=== PATIENT | female | born 1965 | race Asian ===

== ENCOUNTER → 2021-02-10 11:21 | Outpatient (REF) | payer OTHER, SELFPAY ==
--- NOTE | 2021-02-10 11:26 | ECG_ITS ---
Test Reason : Z01.818 Blood Pressure : / mmHG Vent. Rate : 074 BPM Atrial Rate : 074 BPM P-R Int : 114 ms QRS Dur : 078 ms QT Int : 408 ms P-R-T Axes : 057 034 048 degrees QTc Int : 452 ms Normal sinus rhythm Nonspecific T wave abnormality Abnormal ECG No previous ECGs available Referred By: Jessica Lyons Electronically Signed By:Jose Tejada
[2021-02-10 11:33] LABS: MANUAL DIFF FLAG NO
[2021-02-10 13:01] LABS: Basophils Percent Auto 0.3 % (0-2); Eosinophils Absolute Auto 0.1 X10*3/uL (0.0-0.4); Eosinophils Percent Auto 1.2 % (0-4); Hematocrit 41.2 % (37.0-47.0); Hemoglobin 13.4 g/dl (12.0-16.0); Imm Gran Abs Auto 0.02 X10*3/uL (0.00-0.03); Imm Gran Pct Auto 0.3 % (0.0-0.4); Lymphocytes Absolute Auto 2.6 X10*3/uL (1.2-4.9); Lymphocytes Percent Auto 45.2 % (20-40); Mean Corpuscular HGB Conc 32.5 g/dl (31.0-35.0); Mean Corpuscular Hemoglobin 29.3 pg (27.0-33.0); Mean Corpuscular Volume 90.2 fL (80.0-98.0); Mean Platelet Volume 9.1 fL (9.4-12.3); Monocytes Absolute Auto 0.5 X10*3/uL (0.1-1.2); Monocytes Percent Auto 9.4 % (2-11); Neutrophils Absolute Auto 2.5 x10*3/uL (2.0-8.3); Neutrophils Percent Auto 43.6 % (45-73); Platelet Count 409 X10*3/uL (160-400); Red Blood Count 4.57 X10*6/uL (4.20-5.50); White Blood Count 5.8 X10*3/uL (4.8-10.8)
[2021-02-10 13:08] LABS: Prothrombin Time 11.3 SEC (9.9-13.0)
[2021-02-10 13:11] LABS: Partial Thromboplastin Time 37.4 SEC (24.1-38.0)
[2021-02-10 13:21] LABS: Alanine Aminotransferase 14 U/L (0-31); Albumin Level 4.8 g/dL (3.5-5.0); Alkaline Phosphatase 78 U/L (39-117); Anion Gap 15 (12-20); Aspartate Amino Transferase 19 U/L (5-31); Bilirubin Total 0.7 mg/dL (0.0-1.0); Blood Urea Nitrogen 13 mg/dL (9-16); Calcium 10.2 mg/dL (8.4-10.2); Carbon Dioxide 28 mmol/L (22-29); Chloride 104 mmol/L (96-108); Estimated Glomerular Filt Rate > 60; Glucose Fasting 113 mg/dL (60-99); Potassium 5.1 mmol/L (3.3-5.1); Sodium 142 mmol/L (135-145)
== END ==
LOC: HO.CARD 11:21
PROVIDERS: PCP Internal Medicine; Visit Provider Nurse Practitioner Family
DX: Z01.818 Encounter for other preprocedural examination (principal); I10 Essential (primary) hypertension; E78.00 Pure hypercholesterolemia, unspecified
CPT/HCPCS: 36415; 80053; 85025; 85610; 85730; 93005

== ENCOUNTER 2021-02-28 15:56 | Outpatient (REF) | payer OTHER, SELFPAY ==
--- NOTE | ~2021-02-28 | MM_ITS ---
EXAMINATION: MM SCREENING DIGITAL BREAST TOMOSYNTHESIS, BILATERAL CLINICAL INFORMATION: Screening. Asymptomatic. The lifetime risk of breast cancer based on the Tyrer-Cuzick Model is 13%. COMPARISON: Mammography: 01/15/2019, 10/28/2017, 04/07/2016 TECHNIQUE: Digital breast tomosynthesis is performed in both the craniocaudal and mediolateral oblique views along with computer-aided detection (CAD). Synthesized 2D images are generated from the tomosynthesis. Additional right MLO view is provided. FINDINGS: There are scattered areas of fibroglandular density (ACR BI-RADS breast composition Category b). There are no significant masses, abnormal calcifications, or other abnormalities. No architectural abnormality. The axilla are unremarkable. MM/MM tomosynthesis screening BI IMPRESSION: No mammographic evidence of malignancy. ASSESSMENT: BI-RADS 1: Negative RECOMMENDATION: Routine annual mammography screening. This patient's information was entered into a reminder system with a target due date for their next mammogram.
== END 2021-02-28 15:57 | disposition home or self-care (01) ==
LOC: HO.MAMMO 15:56
PROVIDERS: PCP Internal Medicine; Visit Provider Internal Medicine
DX: Z12.31 Encounter for screening mammogram for malignant neoplasm of breast (principal)
CPT/HCPCS: 77063; 77067

== ENCOUNTER 2022-02-22 08:11 | Outpatient (REF) | payer OTHER, SELFPAY ==
--- NOTE | ~2022-02-22 | MM_ITS ---
EXAMINATION: BONE DENSITOMETRY CLINICAL INDICATION: Menopause. COMPARISON: This is the patient's baseline examination. TECHNIQUE: Using a [employer] DXA System (software version: 13.1) manufactured by [employer], dual-energy x-ray absorptiometry was performed of the lumbar spine and left hip. The images are of good technical quality. Summary results are attached. FINDINGS: AP SPINE L1-L4: BMD 0.984 g/cm2, Z-score -0.5, T-score -1.6, osteopenia. LEFT FEMUR, NECK: BMD 0.877 g/cm2, Z-score 0.1, T-score -1.2, osteopenia. LEFT FEMUR, TOTAL: BMD 0.861 g/cm2, Z-score -0.3, T-score -1.2, osteopenia. IDENTIFIED RISK FACTORS: Menopause, rheumatoid arthritis, glucocorticoids (chronic). HISTORY OF FRACTURE: None listed. MEDICATIONS: Multivitamin, vitamin D. MM/XR DEXA axial skeleton IMPRESSION: 1. DIAGNOSIS: Osteopenia based on the lowest T-score value of -1.6 in the lumbar spine applying World Health Organization criteria. 2. 10-YEAR FRACTURE RISK PREDICTION, FRAX: Major osteoporotic fracture (clinical spine, forearm, hip or shoulder) 7.3%. Hip fracture 0.6%. 3. Treatment Recommendations: NOF guidelines recommend consideration for treatment in postmenopausal women and men age 50 and older presenting with the following: -A hip or vertebral (clinical or morphometric) fracture. -T-score less than or equal to -2.5 at the femoral neck or spine after appropriate evaluation to exclude secondary causes. -Low bone mass at the hip or spine and a 10-year fracture probability by FRAX of greater than or equal to 3% for hip fracture or greater than or equal to 20% for major osteoporotic fracture based on the [place] adapted WHO algorithm. 4. Other Recommendations: All treatment decisions require clinical judgment and consideration of individual patient factors, including patient preferences, comorbidities, previous drug use, risk factors not captured in the FRAX model (e.g. frailty, falls, vitamin D deficiency, increased bone turnover, interval significant decline in bone density) and possible under or overestimation of fracture risk by FRAX. Additional medical evaluation for secondary cause of low bone mineral density may be appropriate. FUTURE SCAN RECOMMENDATION: People with diagnosed cases of osteoporosis or at high risk for fracture should have regular bone mineral density tests. For patients eligible for Medicare, routine testing is allowed once every 2 years. The testing frequency can be increased to one year for patients who have rapidly progressing disease, those who are receiving or discontinuing medical therapy to restore bone mass, or have additional risk factors.
== END 2022-02-22 08:12 | disposition home or self-care (01) ==
LOC: HO.MAMMO 08:11
PROVIDERS: Visit Provider Internal Medicine
DX: Z13.820 Encounter for screening for osteoporosis (principal); Z78.0 Asymptomatic menopausal state
CPT/HCPCS: 77080

== ENCOUNTER 2022-03-13 11:45 | Outpatient (REF) | payer OTHER, SELFPAY ==
--- NOTE | ~2022-03-13 | MM_ITS ---
EXAMINATION: MM SCREENING DIGITAL BREAST TOMOSYNTHESIS, BILATERAL CLINICAL INFORMATION: Screening. Asymptomatic. Family history breast cancer, sister. The lifetime risk of breast cancer based on the Tyrer-Cuzick Model is 6%. COMPARISON: Mammography: 02/28/2021, 01/15/2019, 10/28/2017 TECHNIQUE: Digital breast tomosynthesis is performed in both the craniocaudal and mediolateral oblique views along with computer-aided detection (CAD). Synthesized 2D images are generated from the tomosynthesis. FINDINGS: There are scattered areas of fibroglandular density (ACR BI-RADS breast composition Category b). There are no significant masses, abnormal calcifications, or other abnormalities. Parenchymal pattern is similar to prior studies. There is no developing density or architectural abnormality. The axilla and skin contours are unremarkable. No significant changes. MM/MM tomosynthesis screening BI IMPRESSION: No mammographic evidence of malignancy. ASSESSMENT: BI-RADS 1: Negative RECOMMENDATION: Routine annual mammography screening. This patient's information was entered into a reminder system with a target due date for their next mammogram.
== END 2022-03-13 11:46 | disposition home or self-care (01) ==
LOC: HO.MAMMO 11:45
PROVIDERS: PCP Internal Medicine; Visit Provider Internal Medicine
DX: Z12.31 Encounter for screening mammogram for malignant neoplasm of breast (principal)
CPT/HCPCS: 77063; 77067

== ENCOUNTER 2022-06-12 10:34 | Outpatient (REF) | payer OTHER, SELFPAY ==
[2022-06-12 10:59] LABS: MANUAL DIFF FLAG NO
[2022-06-12 11:21] LABS: Basophils Percent Auto 0.5 % (0-2); Eosinophils Absolute Auto 0.1 X10*3/uL (0.0-0.4); Eosinophils Percent Auto 1.1 % (0-4); Hematocrit 41.5 % (37.0-47.0); Hemoglobin 13.5 g/dl (12.0-16.0); Imm Gran Abs Auto 0.01 X10*3/uL (0.00-0.03); Imm Gran Pct Auto 0.2 % (0.0-0.4); Lymphocytes Absolute Auto 2.8 X10*3/uL (1.2-4.9); Lymphocytes Percent Auto 50.6 % (20-40); Mean Corpuscular HGB Conc 32.5 g/dl (31.0-35.0); Mean Corpuscular Hemoglobin 29.2 pg (27.0-33.0); Mean Corpuscular Volume 89.8 fL (80.0-98.0); Monocytes Absolute Auto 0.6 X10*3/uL (0.1-1.2); Monocytes Percent Auto 10.7 % (2-11); Neutrophils Absolute Auto 2.1 x10*3/uL (2.0-8.3); Neutrophils Percent Auto 36.9 % (45-73); Platelet Count 374 X10*3/uL (160-400); Red Blood Count 4.62 X10*6/uL (4.20-5.50); Red Cell Distribution Width 12.2 % (11.0-16.0); White Blood Count 5.6 X10*3/uL (4.8-10.8)
[2022-06-12 12:14] LABS: Cholesterol 251 mg/dL; HDL Cholesterol 51 mg/dL; LDL Cholesterol Calculated 134 mg/dl; Triglycerides 333 mg/dL
[2022-06-12 12:47] LABS: Folate 12.7 ng/mL (> or = 4.0); Vitamin B12 793 pg/mL (200-900); Vitamin D 25-OH Total 15.8 ng/mL (>30)
[2022-06-17 18:29] LABS: Intrinsic Factor Antibodies Negative (Negative)
[2022-06-19 15:23] LABS: Parietal Cell Antibody 54.6 Unit (<=20.0)
== END 2022-06-12 10:35 | disposition home or self-care (01) ==
LOC: HO.LAB 10:34
PROVIDERS: PCP Internal Medicine; Visit Provider Internal Medicine
DX: E53.8 Deficiency of other specified B group vitamins (principal); D64.9 Anemia, unspecified; E78.5 Hyperlipidemia, unspecified; E55.9 Vitamin D deficiency, unspecified
CPT/HCPCS: 36415; 80061; 82306; 82607; 82746; 83516; 85025; 86340

== ENCOUNTER 2023-04-17 11:58 | Outpatient (REF) | payer OTHER, SELFPAY ==
[2023-04-17 13:35] LABS: Alanine Aminotransferase 12 U/L (0-31); Albumin Level 4.5 g/dL (3.5-5.0); Alkaline Phosphatase 72 U/L (39-117); Anion Gap 12 (12-20); Aspartate Amino Transferase 19 U/L (5-31); Bilirubin Total 0.4 mg/dL (0.0-1.0); Blood Urea Nitrogen 13 mg/dL (9-16); Calcium 9.5 mg/dL (8.4-10.2); Carbon Dioxide 30 mmol/L (22-29); Chloride 104 mmol/L (96-108); Cholesterol 244 mg/dL (<200); Estimated Glomerular Filt Rate > 60; Glucose Fasting 117 mg/dL (60-99); HDL Cholesterol 53 mg/dL (>40); LDL Cholesterol Calculated 126 mg/dL (<100); Potassium 3.9 mmol/L (3.3-5.1); Sodium 142 mmol/L (135-145); Triglycerides 328 mg/dL (<150)
[2023-04-17 13:50] LABS: Vitamin D 25-OH Total 24.9 ng/mL (>30)
== END 2023-04-17 11:59 | disposition home or self-care (01) ==
LOC: HO.LAB 11:58
PROVIDERS: Visit Provider Internal Medicine
DX: E78.5 Hyperlipidemia, unspecified (principal); E55.9 Vitamin D deficiency, unspecified; M85.80 Other specified disorders of bone density and structure, unspecified site
CPT/HCPCS: 36415; 80053; 80061; 82306

== ENCOUNTER 2023-04-25 13:48 | Outpatient (AMB) | payer OTHER, SELFPAY ==
[2023-04-25 13:50] VITALS: BP 114/70; BMI 23.7
--- NOTE | 2023-04-25 13:50 | MHC.PC.OV ---
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 Accompanied by: Self / Same As Patient Allergies ibuprofen Allergy (Mild, Verified 04/25/23 14:06) Abdominal Pain aspirin [ASPIRIN] Allergy (Unknown, Verified 04/25/23 14:06) STOMACH UPSET, gi upset meloxicam Adverse Reaction (Intermediate, Verified 04/25/23 14:06) upset stomach Aspir Allergy (Unknown, Uncoded 04/25/23 14:06) stomach upset Medication List - Last Reconciled 04/25/23 by Leidy Crook MD adalimumab (Humira Pen) 40 mg subcut QWEEK calcium carbonate-vitamin D3 500 mg-10 mcg (400 unit) (Oyster Shell Calcium-Vitamin D3) 1 tab PO DAILY 90 days cholecalciferol (vitamin D3) 50 mcg PO DAILY 90 days mecobalamin (vitamin B12) 1,000 mcg PO DAILY nabumetone 500 mg PO BID Tobacco use date assessed: 04/25/23 Dental Screening Dental Screen Date: 04/25/23 Did you have a dental visit in the last 12 months?: Yes Did you have a dental problem in the last 6 months where you did not have access to dental care?: No Was dental information given to patient?: Patient has dentist HPI HPI Comments History of Present Illness Details This is a 57-year-old female with rheumatoid arthritis that comes for her physical exam. Last mammogram was 2021 and I will order another mammogram. Last bone density was February 2022. Last colonoscopy was 2017 and next colonoscopy should be 2027. She declined Pap smear and last one was done about 5 years ago. Rheumatoid arthritis is follow by Rheumatology. She has impaired glucose tolerance but denies any polyuria, polydipsia or unintentional weight loss. Rheumatoid arthritis is follow by arthritis treatment center and has been stable with Humira. Has mixed hyperlipidemia and statins and fibrates will be started. [facility] Medical History Impaired glucose tolerance Surgical History History of section Family History Mother Diabetes mellitus Father No problems noted. Social History Housing: House Alcohol intake: never Patient Tobacco Use Status: Never used Tobacco e-Cigarette/Vaping Use: Never Used Second Hand Smoke Exposure: No service: No Current occupational status: unemployed Cognitive needs: No Hearing needs: No Vision needs: No Questionnaire PHQ-9 Over the last 2 weeks, how often have you been bothered by any of the following problems? 1. Little interest or pleasure in doing things: not at all 2. Feeling down, depressed, or hopeless: not at all 3. Trouble falling or staying asleep, or sleeping too much: not at all 4. Feeling tired or having little energy: not at all 5. Poor appetite or overeating: not at all 6. Feeling bad about yourself - or that you are a failure or have let yourself or your family down: not at all 7. Trouble concentrating on things, such as reading the newspaper or watching television: not at all 8. Moving or speaking so slowly that other people could have noticed. Or the opposite - being so fidgety or restless that you have been moving around a lot more than usual: not at all 9. Thoughts that you would be better off or of hurting yourself in some way: not at all Total score: 0 Depression Screening Interpretation: Negative Depression Screening Done: Yes 01771 - PHQ-9 Billing: Yes Source: Developed by Drs. Aj Knox, Iliana Ruiz, Javid Walton and colleagues, with an educational humphrey from [employer]. Thrive Questionnaire Date Thrive assessed: 04/25/23 I am a: Patient What is your living situation today?: I have a steady place to live Within the past 12 months, did the food you bought not last and you didn't have the money to get more?: Never true Within the past 12 months, did you worry whether your food would run out before you got money to buy more?: Never true Do you have trouble paying for medicines?: No Do you have trouble getting transportation to medical appointments?: No Do you have trouble paying your heating and electricity bill?: No Do you have trouble taking care of your child, family member or friend?: No Do you have trouble with day-to-day activities such as bathing, preparing meals, shopping, managing finances, etc.?: No Are you currently unemployed and looking for a job?: No Are you interested in more education?: No Please select the resources that you would like help with: None Currently or been in a relationship where the following occur: no concerns reported THRIVE Score: 0 AUDIT C Alcohol Use Questionnaire (AUDIT-C) 1. How often do you have a drink containing alcohol?: Never Total Score: 0 RISHI-7 AMB Questionnaire RISHI-7 Date RISHI - 7 assessed: 04/25/23 Feeling nervous, anxious, or on edge: 0 = Not at all Not being able to stop or control worryin = Not at all Worrying too much about different things: 0 = Not at all Trouble relaxin = Not at all Being so restless that it is hard to sit still: 0 = Not at all Becoming easily annoyed or irritable: 0 = Not at all Feeling afraid as if something awful might happen: 0 = Not at all Total RISHI-7 score (0-4 normal; 5-9 mild; 10-14 moderate; 15-21 severe): 0 Source: Developed by Drs. Aj Knox, Iliana Ruiz, Javid Walton and colleagues, with an educational humphrey from [employer]. RISHI-7 Assessment Billing RISHI-7 Assessment Tool: RISHI-7 Assessment 24495 Review of Systems Const All systems reviewed & are unremarkable except as noted in HPI and below Eyes Reports no additional complaints, Denies change in vision and Denies other visual disturbances Card Denies chest pain at rest, Denies chest pain with activity, Denies edema, Denies irregular heart rhythm, Denies claudication, Denies dyspnea, Denies dyspnea on exertion, Denies orthopnea, Denies paroxysmal nocturnal dyspnea and Denies slow heart rate Resp Denies cough, Denies dyspnea and Denies dyspnea on exertion GI Denies abdominal pain, Denies change in bowel habits, Denies excessive flatus, Denies nausea and Denies vomiting Denies urinary incontinence, Denies urinary hesitancy and Denies urinary urgency Musc Denies abnormal gait, Denies atrophy, Denies deformity and Denies limited range of motion Skin/Breast Denies bleeding lesions, Denies changing lesions and Denies rash Neuro Denies abnormal gait, Denies behavioral changes, Denies confusion and Denies lack of coordination Psych Denies behavioral changes and Denies confusion Physical exam (Primary Care) Vital Signs: Last Vital Signs BP 114/70 04/25/23 13:50 BMI result Body Mass Index 23.7 Tobacco/Smoking Status: Tobacco use Status Tobacco use date assessed 04/25/23 04/25/23 13:56 Patient Tobacco Use Status Never used Tobacco 04/25/23 13:56 e-Cigarette/Vaping Use Never Used 04/25/23 13:56 PHQ-9: PHQ-9 Score PHQ-9: Total score 0 04/25/23 14:22 Depression Screening Interpretation: Negative Thrive Assessment: Date of Thrive Assessment Date Thrive assessed 04/25/23 04/25/23 13:56 Currently or been in a relationship where the following occur: no concerns reported Const General: No confusion Orientation/consciousness: patient oriented x3 and No confusion HENMT Head: Yes normal to inspection, Yes normocephalic and Yes atraumatic Ears: external ears normal Eyes General: appearance normal, both eyes and all related structures Eyelids: Yes eyelids normal Conjunctivae: conjunctivae normal Neck Neck: Yes normal visual inspection and Yes supple Resp Effort & Inspection: normal respiratory effort Auscultation: clear to auscultation bilaterally Cardio Jugular venous distension: no JVD Rate: regular rate Rhythm: regular rhythm Heart sounds: S1 normal heart sound present and S2 normal heart sound present GI Inspection: Yes normal to inspection Palpation (GI): Soft to palpation and nontender Auscultation: normal bowel sounds Skin General skin exam: no rashes or lesions noted Neuro General: patient oriented x3, no focal motor deficits and No confusion Extrem General: Yes full ROM Psych Appearance: grossly normal Assessment and Plan Assessment & Plan (1) Physical exam: Code(s): Z00.00 - Encounter for general adult medical examination without abnormal findings Plan: Repeat in a year. (2) Rheumatoid arthritis: Code(s): M06.9 - Rheumatoid arthritis, unspecified Plan: Continue Humira. Follow-up with rheumatology. Orders: Orders MM screening mammo BI Today Z12.31 - Encounter for screening mammogram for malignant neoplasm of breast XR DEXA axial skeleton 10 Months N95.9 - Unspecified menopausal and perimenopausal disorder Medications: New atorvastatin 10 mg PO BEDTIME 90 tabs 1RF 90 days E78.2 - Mixed hyperlipidemia fenofibrate 54 mg PO DAILY 90 tabs 1RF 90 days E78.2 - Mixed hyperlipidemia Coding Level of Care Code Est Pt Prev Care 40-64y(45551) Diagnoses Physical exam Z00.00 Rheumatoid arthritis M06.9 Additional Codes RISHI-7 Assessment Billing - RISHI-7 Assessment Tool: RISHI-7 Assessment 70123 ([id number]) Time Spent (min) 31
== END 2023-04-25 14:18 | disposition home or self-care (01) ==
PROVIDERS: PCP Internal Medicine; Visit Provider Internal Medicine
DX: Z00.00 Encounter for general adult medical examination without abnormal findings (principal); M06.9 Rheumatoid arthritis, unspecified
CPT/HCPCS: 99396

== ENCOUNTER 2023-07-23 08:00 | Outpatient (AMB) | payer OTHER, SELFPAY ==
[2023-07-23 08:01] VITALS: BP 122/68; PULSE 78; O2SAT 98; BMI 24.1
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
== END 2023-07-23 09:24 | disposition home or self-care (01) ==
PROVIDERS: PCP Internal Medicine; Visit Provider Internal Medicine
DX: T30.0 Burn of unspecified body region, unspecified degree (principal)
CPT/HCPCS: 99213

== ENCOUNTER 2023-10-05 07:29 | Outpatient (REF) | payer OTHER, SELFPAY ==
--- NOTE | ~2023-10-05 | XR_ITS ---
EXAMINATION: XR KNEE, RIGHT CLINICAL INFORMATION: Pain. COMPARISON: None TECHNIQUE: AP and lateral upright views of the right knee are submitted. FINDINGS: Bony alignment and mineralization are normal. The lateral, medial and patellofemoral joint space compartments are well-maintained. There is mild peripheral osteophyte formation of the medial and patellofemoral compartments. No fracture or dislocation are seen. There is a trace joint effusion. No foreign body is seen. XR/XR knee RT 2V IMPRESSION: 1. No right knee fracture or dislocation is seen. There is a trace effusion. 2. There is very mild osteoarthritic change of the medial and patellofemoral joint space compartments of the right knee. Electronically signed by: Jim Roque MD 10/31/2023 12:00 PM EDT
== END 2023-10-05 07:30 | disposition home or self-care (01) ==
LOC: HO.XRAY 07:29
PROVIDERS: PCP Internal Medicine; Visit Provider Internal Medicine Rheumatology
DX: M25.561 Pain in right knee (principal)
CPT/HCPCS: 73560

== ENCOUNTER 2024-02-28 12:44 | Outpatient (REF) | payer OTHER, SELFPAY ==
--- NOTE | ~2024-02-28 | MM_ITS ---
EXAMINATION: BONE DENSITOMETRY CLINICAL INDICATION: Unspecified menopausal and perimenopausal disorder. COMPARISON: Baseline BD dated 02/22/2022. TECHNIQUE: Using a [employer] DXA System (software version: 13.1) manufactured by [email or web address], dual-energy x-ray absorptiometry was performed of the lumbar spine and left hip. The images are of good technical quality. Summary results are attached. FINDINGS: LEFT FEMUR, NECK: Current: BMD 0.890 g/cm2, Z-score 0.2, T-score -1.1, osteopenia. Baseline: BMD 0.877 g/cm2. LEFT FEMUR, TOTAL: Current: BMD 0.852 g/cm2, Z-score -0.3, T-score -1.2, osteopenia, 1.0% decrease from baseline (<5% change is not significant). Baseline: BMD 0.861 g/cm2. AP SPINE L1-L4: Current: BMD 1.003 g/cm2, Z-score -0.2, T-score -1.5, osteopenia, 1.9% increase from baseline (<5% change is not significant). Baseline: BMD 0.984 g/cm2. IDENTIFIED RISK FACTORS: Height loss, menopause, osteoporosis, rheumatoid arthritis. HISTORY OF FRACTURE: None listed. MEDICATIONS: Calcium, vitamin D. MM/XR DEXA axial skeleton IMPRESSION: 1. DIAGNOSIS: Osteopenia based on the lowest T-score value of -1.5 in the lumbar spine applying World Health Organization criteria. 2. 10-YEAR FRACTURE RISK PREDICTION, FRAX: Major osteoporotic fracture (clinical spine, forearm, hip or shoulder) 4.9%. Hip fracture 0.3%. 3. Treatment Recommendations: NOF guidelines recommend consideration for treatment in postmenopausal women and men age 50 and older presenting with the following: -A hip or vertebral (clinical or morphometric) fracture. -T-score less than or equal to -2.5 at the femoral neck or spine after appropriate evaluation to exclude secondary causes. -Low bone mass at the hip or spine and a 10-year fracture probability by FRAX of greater than or equal to 3% for hip fracture or greater than or equal to 20% for major osteoporotic fracture based on the [place] adapted WHO algorithm. 4. Other Recommendations: All treatment decisions require clinical judgment and consideration of individual patient factors, including patient preferences, comorbidities, previous drug use, risk factors not captured in the FRAX model (e.g. frailty, falls, vitamin D deficiency, increased bone turnover, interval significant decline in bone density) and possible under or overestimation of fracture risk by FRAX. Additional medical evaluation for secondary cause of low bone mineral density may be appropriate. FUTURE SCAN RECOMMENDATION: People with diagnosed cases of osteoporosis or at high risk for fracture should have regular bone mineral density tests. For patients eligible for Medicare, routine testing is allowed once every 2 years. The testing frequency can be increased to one year for patients who have rapidly progressing disease, those who are receiving or discontinuing medical therapy to restore bone mass, or have additional risk factors. Electronically signed by: Jay Daniels MD 02/28/2024 02:38 PM SARAH FALLON
--- NOTE | ~2024-02-28 | MM_ITS ---
EXAMINATION: MM SCREENING DIGITAL BREAST TOMOSYNTHESIS, BILATERAL CLINICAL INFORMATION: Screening. Asymptomatic. COMPARISON: Mammography: Comparison is made with available priors TECHNIQUE: Digital breast mammography with tomosynthesis is performed in both the craniocaudal and mediolateral oblique views along with computer-aided detection (CAD). FINDINGS: There are scattered areas of fibroglandular density (ACR BI-RADS breast composition Category b). There are no significant masses, abnormal calcifications, or other abnormalities. MM/MM tomosynthesis screening BI IMPRESSION: No mammographic evidence of malignancy. ASSESSMENT: BI-RADS BI-RADS 1 - Negative RECOMMENDATION: Routine annual mammography screening. 1 year F/U This examination should not preclude the clinical evaluation of a suspicious palpable abnormality. This patient's information was entered into a reminder system with a target due date for their next mammogram. Electronically signed by: Elizabeth Dill DO 03/11/2024 01:45 PM SARAH
== END 2024-02-28 12:45 | disposition home or self-care (01) ==
LOC: HO.MAMMO 12:44
PROVIDERS: PCP Internal Medicine; Visit Provider Internal Medicine
DX: N95.9 Unspecified menopausal and perimenopausal disorder (principal); M85.89 Other specified disorders of bone density and structure, multiple sites; Z79.899 Other long term (current) drug therapy; Z12.31 Encounter for screening mammogram for malignant neoplasm of breast
CPT/HCPCS: 77063; 77067; 77080

== ENCOUNTER → 2024-02-28 12:45 | Outpatient (BNV) | payer OTHER, SELFPAY | PROVIDERS: PCP Internal Medicine; Visit Provider Internal Medicine | DX: Z12.31 Encounter for screening mammogram for malignant neoplasm of breast (principal) | CPT/HCPCS: 77063; 77067 ==

== ENCOUNTER 2024-04-21 09:18 | Outpatient (REF) | payer OTHER, SELFPAY ==
[2024-04-21 11:07] LABS: Alanine Aminotransferase 22 U/L (0-31); Albumin Level 4.4 g/dL (3.5-5.0); Alkaline Phosphatase 53 U/L (39-117); Anion Gap 13 (12-20); Aspartate Amino Transferase 24 U/L (5-31); Bilirubin Total 0.3 mg/dL (0.0-1.0); Blood Urea Nitrogen 16 mg/dL (9-16); Calcium 9.8 mg/dL (8.4-10.2); Carbon Dioxide 29 mmol/L (22-29); Chloride 105 mmol/L (96-108); Cholesterol 150 mg/dL (<200); Estimated Glomerular Filt Rate > 60; Glucose Fasting 131 mg/dL (60-99); HDL Cholesterol 69 mg/dL (>40); LDL Cholesterol Calculated 58 mg/dL (<100); Potassium 4.6 mmol/L (3.3-5.1); Sodium 142 mmol/L (135-145); Total Protein 7.8 g/dL (6.5-8.0); Triglycerides 116 mg/dL (<150)
[2024-04-21 11:22] LABS: Vitamin D 25-OH Total 26.9 ng/mL (>30)
== END 2024-04-21 09:19 | disposition home or self-care (01) ==
LOC: HO.LAB 09:18
PROVIDERS: PCP Internal Medicine; Visit Provider Internal Medicine
DX: E78.2 Mixed hyperlipidemia (principal); E78.5 Hyperlipidemia, unspecified; E55.9 Vitamin D deficiency, unspecified
CPT/HCPCS: 36415; 80053; 80061; 82306

== ENCOUNTER 2024-04-28 13:00 | Outpatient (AMB) | payer OTHER, SELFPAY ==
--- NOTE | 2024-04-28 13:04 | A.OFFPC_ITS ---
Vital Signs 04/28/24 13:05 Height 5 ft 3 in Weight 134 lb BMI 23.7 BP 130/82 Blood Pressure Location Lt brachial Position Sitting Intake Visit Reasons: Annual Exam Intake Note: Patient here for an annual physical exam [employer]argo Tank [employer] Required: No Accompanied by: Self / Same As Patient Allergies ibuprofen Allergy (Mild, Verified 04/28/24 13:12) Abdominal Pain aspirin [ASPIRIN] Allergy (Unknown, Verified 04/28/24 13:12) STOMACH UPSET, gi upset meloxicam Adverse Reaction (Intermediate, Verified 04/28/24 13:12) upset stomach Aspir Allergy (Unknown, Uncoded 04/28/24 13:12) stomach upset Medication List - Last Reconciled 04/28/24 by Leidy Crook MD adalimumab (Humira Pen) 40 mg subcut QWEEK atorvastatin 10 mg PO BEDTIME 90 days calcium carbonate-vitamin D3 500 mg-10 mcg (400 unit) (Oyster Shell Calcium- Vitamin D3) 1 tab PO DAILY 90 days cholecalciferol (vitamin D3) 50 mcg PO DAILY 90 days clobetasol 0.05% 1 appl topical BID fenofibrate 54 mg PO DAILY 90 days mecobalamin (vitamin B12) 1,000 mcg PO DAILY nabumetone 500 mg PO BID silver sulfadiazine 1% 1 appl topical BID Tobacco use date assessed: 04/28/24 Dental Screening Dental Screen Date: 04/28/24 Did you have a dental visit in the last 12 months?: Yes Did you have a dental problem in the last 6 months where you did not have access to dental care?: No Was dental information given to patient?: Patient has dentist HPI HPI Comments History of Present Illness Details The patient is a 58-year-old female presenting for a physical exam. She has a history of osteopenia, diagnosed after a bone density test, for which she is on calcium with vitamin D supplementation. She also has rheumatoid arthritis, managed with Humira, prescribed through her arthritis treatment center. Her lipid profile shows hypercholesterolemia, controlled with atorvastatin 10 mg, with excellent management results. She also suffers from pernicious anemia, for which she takes vitamin B12. Recently, her A1c level was checked, revealing a value of 7.3%, leading to a diagnosis of Type 2 Diabetes Mellitus. Additionally, there is a family history of diabetes, as both her parents and two sisters have the condition. The patient has an allergy to ibuprofen, aspirin, and meloxicam causing abdominal pain. She refrained from receiving the Tdap vaccine during this visit, and her last mammogram was normal. She has had three C-sections as her only surgeries. Her most recent colonoscopy was in 2018, showing normal findings. - Declined the Tdap vaccine during the v isit. - Mammogram in February was normal. - Bone density test reveals osteopenia; follow-up recommended in 2025. - Colonoscopy in 2017 was normal; next r ecommended in 2027. - Blood sugar level was elevated at 131 mg/dL, A1c confirmed at 7.3% indicative of diabetes mellitus. - Cholesterol levels are optimal with at orvastatin therapy; current cholesterol at 150 mg/dL. - Vitamin D levels remain low, despite d aily supplementation, at 6.9 ng/mL (previously 15 ng/mL). [facility] Medical History (Updated 04/28/24 @ 13:33 by Leidy Crook MD) Impaired glucose tolerance Surgical History History of section Family History Mother Diabetes mellitus Father No problems noted. Social History Housing: House Alcohol intake: never Patient Tobacco Use Status: Never used Tobacco e-Cigarette/Vaping Use: Never Used Second Hand Smoke Exposure: No service: No Current occupational status: unemployed Cognitive needs: No Hearing needs: No Vision needs: No Questionnaire PHQ-9 Over the last 2 weeks, how often have you been bothered by any of the following problems? 1. Little interest or pleasure in doing things: not at all 2. Feeling down, depressed, or hopeless: not at all 3. Trouble falling or staying asleep, or sleeping too much: not at all 4. Feeling tired or having little energy: not at all 5. Poor appetite or overeating: not at all 6. Feeling bad about yourself - or that you are a failure or have let yourself or your family down: not at all 7. Trouble concentrating on things, such as reading the newspaper or watching television: not at all 8. Moving or speaking so slowly that other people could have noticed. Or the opposite - being so fidgety or restless that you have been moving around a lot more than usual: not at all 9. Thoughts that you would be better off or of hurting yourself in some way: not at all Total score: 0 Depression Screening Interpretation: Negative Depression Screening Done: Yes 06272 - PHQ-9 Billing: Yes Source: Developed by Drs. Aj Knox, Iliana Ruiz, Javid Walton and colleagues, with an educational humphrey from [employer]. Thrive Questionnaire Date Thrive assessed: 04/28/24 I am a: Patient What is your living situation today?: I choose not to answer this question Within the past 12 months, did the food you bought not last and you didn't have the money to get more?: I choose not to answer this question Within the past 12 months, did you worry whether your food would run out before you got money to buy more?: I choose not to answer this question Do you have trouble paying for medicines?: No Do you have trouble getting transportation to medical appointments?: No Do you have trouble paying your heating and electricity bill?: No Do you have trouble taking care of your child, family member or friend?: No Do you have trouble with day-to-day activities such as bathing, preparing meals, shopping, managing finances, etc.?: No Are you currently unemployed and looking for a job?: No Are you interested in more education?: No Please select the resources that you would like help with: None Currently or been in a relationship where the following occur: I choose not to answer THRIVE Score: 0 AUDIT C Alcohol Use Questionnaire (AUDIT-C) 1. How often do you have a drink containing alcohol?: Never Total Score: 0 Score Reviewed/Action Taken: No RISHI-7 AMB Questionnaire RISHI-7 Date RISHI - 7 assessed: 04/28/24 Feeling nervous, anxious, or on edge: 0 = Not at all Not being able to stop or control worryin = Not at all Worrying too much about different things: 0 = Not at all Trouble relaxin = Not at all Being so restless that it is hard to sit still: 0 = Not at all Becoming easily annoyed or irritable: 0 = Not at all Feeling afraid as if something awful might happen: 0 = Not at all Total RISHI-7 score (0-4 normal; 5-9 mild; 10-14 moderate; 15-21 severe): 0 Source: Developed by Drs. Aj Knox, Iliana Ruiz, Javid Walton and colleagues, with an educational humphrey from [employer]. RISHI-7 Assessment Billing RISHI-7 Assessment Tool: RISHI-7 Assessment 78725 Review of Systems Const All systems reviewed & are unremarkable except as noted in HPI and below Card Denies chest pain at rest, Denies chest pain with activity, Denies edema, Denies irregular heart rhythm, Denies claudication, Denies dyspnea, Denies dyspnea on exertion, Denies orthopnea, Denies paroxysmal nocturnal dyspnea and Denies slow heart rate Resp Denies cough, Denies dyspnea and Denies dyspnea on exertion GI Denies abdominal pain, Denies change in bowel habits, Denies excessive flatus, Denies nausea and Denies vomiting Denies urinary incontinence, Denies urinary hesitancy and Denies urinary urgency Musc Denies atrophy, Denies deformity and Denies limited range of motion Physical exam (Primary Care) Vital Signs: Last Vital Signs BP 130/82 04/28/24 13:05 BMI result Body Mass Index 23.7 Tobacco/Smoking Status: Tobacco use Status Tobacco use date assessed 04/28/24 04/28/24 13:10 Patient Tobacco Use Status Never used Tobacco 04/28/24 13:10 e-Cigarette/Vaping Use Never Used 04/28/24 13:10 PHQ-9: PHQ-9 Score PHQ-9: Total score 0 04/28/24 13:14 Depression Screening Interpretation: Negative Thrive Assessment: Date of Thrive Assessment Date Thrive assessed 04/28/24 04/28/24 13:10 Currently or been in a relationship where the following occur: I choose not to answer HENMT Head: Yes normal to inspection, Yes normocephalic and Yes atraumatic Ears: external ears normal Eyes General: appearance normal, both eyes and all related structures Eyelids: Yes eyelids normal Conjunctivae: conjunctivae normal Neck Neck: Yes normal visual inspection and Yes supple Resp Effort & Inspection: normal respiratory effort Auscultation: clear to auscultation bilaterally Cardio Jugular venous distension: no JVD Rate: regular rate Rhythm: regular rhythm Heart sounds: S1 normal heart sound present and S2 normal heart sound present GI Inspection: Yes normal to inspection Palpation (GI): Soft to palpation and nontender Auscultation: normal bowel sounds Skin General skin exam: no rashes or lesions noted Neuro General: no focal motor deficits Extrem General: Yes full ROM Psych Appearance: grossly normal Results AMB Hemoglobin A1c AMB Hemoglobin A1c 7.3 % Last Edit by MERISSA Yan on 04/28/24 13:3 0 Coding Level of Care Code Est Pt Level 3 (80292) Est Pt Prev Care 40-64y(90658) Diagnoses Physical exam Z00.00 Type 2 diabetes mellitus without complication, without long-term current use of insulin E11.9 Rheumatoid arthritis involving multiple sites, unspecified whether rheumatoid factor present M06.9 Rheumatoid arthritis location: multiple sites Rheumatoid factor presence: unspecified presence Additional Codes PHQ-9 - 16087 - PHQ-9 Billing: Yes ([id number]) RISHI-7 Assessment Billing - RISHI-7 Assessment Tool: RISHI-7 Assessment 56161 ([id number]) Time Spent (min) 31 Assessment & Plan Assessment & Plan (1) Physical exam: Code(s): Z00.00 - Encounter for general adult medical examination without abnormal findings Category: Medical (2) Type 2 diabetes mellitus without complication, without long-term current use of insulin: Code(s): E11.9 - Type 2 diabetes mellitus without complications Category: Medical (3) Rheumatoid arthritis: Code(s): M06.9 - Rheumatoid arthritis, unspecified Category: Medical Qualifiers: Rheumatoid arthritis location: multiple sites Rheumatoid factor presence: unspecified presence Qualified Code(s): M06.9 - Rheumatoid arthritis, unspecified Plan - Monitor blood glucose and perform blood sugar checks once daily: - Reassessment and labs, including A1c, to be repeated in four months regarding diabetes management. Patient was informed and verbally consented to the use of an ambient scribe for clinic note documentation during this visit. During the visit, I explained the diagnosis of Type 2 Diabetes Mellitus and discussed starting metformin at a low dose. Possible side effects and the importance of monitoring blood glucose levels at home were reviewed. Strategies for managing her vegan diet and ensuring sufficient vitamin D intake were discussed. I addressed the ongoing management of her rheumatoid arthritis and hypercholesterolemia and ensured her understanding of her current medications and the rationale behind each. Follow-up blood work is scheduled in four months to reassess diabetes management. Orders: Orders AMB Hemoglobin A1c Today R73.02 - Impaired glucose tolerance (oral) Comprehensive [place]. Panel Fast 4 Months E11.9 - Type 2 diabetes mellitus without complications Vitamin D 25-OH Total 4 Months E55.9 - Vitamin D deficiency, unspecified Lipid Panel 4 Months E11.9 - Type 2 diabetes mellitus without complications, E78.5 - Hyperlipidemia, unspecified Vitamin B12 and Folate 4 Months E53.8 - Deficiency of other specified B group vitamins Medications: New blood sugar diagnostic (FreeStyle Lite Strips) Use 1 test strip once a day 50 ea 6RF E11.9 - Type 2 diabetes mellitus without complications metformin 500 mg PO BID 90 days 180 tabs 1RF E11.9 - Type 2 diabetes mellitus without complications blood-glucose meter (FreeStyle Lite Meter kit) As directed 1 ea 0RF E11.9 - Type 2 diabetes mellitus without complications lancets (FreeStyle Lancets) Use 1 lancet once a day 100 ea 3RF E11.9 - Type 2 diabetes mellitus without complications Patient Instructions: - Start metformin twice daily as prescribed. - Monitor blood glucose levels daily and record them. - Maintain your current medication regimen for rheumatoid arthritis and cholesterol. - Continue taking calcium with vitamin D daily. - Schedule follow-up labs in four months to reassess diabetes management. - Maintain a healthy lifestyle and monitor dietary vitamin D intake.
[2024-04-28 13:05] VITALS: BP 130/82; BMI 23.7
== END 2024-04-28 13:23 | disposition home or self-care (01) ==
PROVIDERS: PCP Internal Medicine; Visit Provider Internal Medicine
DX: Z00.00 Encounter for general adult medical examination without abnormal findings (principal); E11.9 Type 2 diabetes mellitus without complications; M06.9 Rheumatoid arthritis, unspecified

== ENCOUNTER → 2024-04-28 13:00 | Outpatient (BNVA) | payer OTHER, SELFPAY | PROVIDERS: PCP Internal Medicine; Visit Provider Internal Medicine | DX: Z00.00 Encounter for general adult medical examination without abnormal findings (principal); E11.9 Type 2 diabetes mellitus without complications; M06.9 Rheumatoid arthritis, unspecified | CPT/HCPCS: 83036; 96127 ==

== ENCOUNTER 2024-08-20 12:44 | Outpatient (AMB) | payer OTHER, SELFPAY ==
--- NOTE | 2024-08-20 12:50 | A.OFFPC_ITS ---
Vital Signs 08/20/24 12:54 Height 5 ft 3 in Weight 135 lb BMI 23.9 BP 120/82 Blood Pressure Location Lt brachial Position Sitting Intake Visit Reasons: dm Intake Note: Patient here for a follow up DM Turn Out Required: No Accompanied by: Self / Same As Patient Allergies ibuprofen Allergy (Mild, Verified 08/20/24 12:58) Abdominal Pain aspirin (ASPIRIN) Allergy (Unknown, Verified 08/20/24 12:58) STOMACH UPSET, gi upset meloxicam Adverse Reaction (Intermediate, Verified 08/20/24 12:58) upset stomach Aspir Allergy (Unknown, Uncoded 08/20/24 12:58) stomach upset Medication List - Last Reconciled 08/20/24 by Leidy Crook MD adalimumab (Humira Pen) 40 mg subcut QWEEK atorvastatin 10 mg PO BEDTIME 90 days blood sugar diagnostic (FreeStyle Lite Strips) Use 1 test strip once a day blood-glucose meter (FreeStyle Lite Meter kit) As directed calcium carbonate-vitamin D3 500 mg-10 mcg (400 unit) (Oyster Shell Calcium- Vitamin D3) 1 tab PO DAILY 90 days cholecalciferol (vitamin D3) 50 mcg PO DAILY 90 days clobetasol 0.05% 1 appl topical BID fenofibrate 54 mg PO DAILY 90 days lancets (FreeStyle Lancets) Use 1 lancet once a day mecobalamin (vitamin B12) 1,000 mcg PO DAILY metformin 500 mg PO BID 90 days nabumetone 500 mg PO BID silver sulfadiazine 1% 1 appl topical BID Tobacco use date assessed: 04/28/24 Dental Screening Dental Screen Date: 04/28/24 HPI HPI Comments History of Present Illness Details The patient is a 58-year-old female presenting with the management of chronic conditions including Type 2 Diabetes Mellitus, Rheumatoid Arthritis, Hyperlipidemia, Osteopenia, Pernicious Anemia, and Eczema. The patient's Type 2 Diabetes Mellitus is currently managed with Metformin 500 mg twice daily, and her recent HbA1c is 6.9%, indicating good glycemic control. She is also on atorvastatin 10 mg for hyperlipidemia, with her last LDL cholesterol level being within the target range of less than 70 mg/dL. Rheumatoid Arthritis is managed with Humira, and the patient reports that her condition is stable with no significant pain at present. Osteopenia is being monitored with calcium and vitamin D supplementation, and a DEXA scan was performed last year with the next one scheduled for 2025. The patient has a history of pernicious anemia, for which she takes vitamin B12 supplements. Eczema is managed with clobetasol as needed. [facility] Surgical History History of section Family History Mother Diabetes mellitus Father No problems noted. Social History Housing: House Alcohol intake: never Patient Tobacco Use Status: Never used Tobacco e-Cigarette/Vaping Use: Never Used Second Hand Smoke Exposure: No service: No Current occupational status: unemployed Cognitive needs: No Hearing needs: No Vision needs: No Questionnaire Thrive Questionnaire Date Thrive assessed: 04/28/24 RISHI-7 AMB Questionnaire RISHI-7 Date RISHI - 7 assessed: 04/28/24 Source: Developed by Drs. Aj Knox, Iliana Ruiz, Javid Walton and colleagues, with an educational humphrey from [employer] ([email or web address]). Review of Systems Const All systems reviewed & are unremarkable except as noted in HPI and below Card Denies chest pain at rest, Denies chest pain with activity, Denies edema, Denies irregular heart rhythm, Denies claudication, Denies dyspnea, Denies dyspnea on exertion, Denies orthopnea, Denies paroxysmal nocturnal dyspnea and Denies slow heart rate Resp Denies cough, Denies dyspnea and Denies dyspnea on exertion GI Denies abdominal pain, Denies change in bowel habits, Denies excessive flatus, Denies nausea and Denies vomiting Denies urinary incontinence, Denies urinary hesitancy and Denies urinary urgency Musc Denies abnormal gait, Denies atrophy, Denies deformity and Denies limited range of motion Skin/Breast Denies bleeding lesions, Denies changing lesions and Denies rash Neuro Denies abnormal gait, Denies behavioral changes and Denies lack of coordination Psych Denies behavioral changes Physical exam (Primary Care) Vital Signs: Last Vital Signs BP 120/82 08/20/24 12:54 BMI result Body Mass Index 23.9 Tobacco/Smoking Status: Tobacco use Status Tobacco use date assessed 04/28/24 08/20/24 12:52 Patient Tobacco Use Status Never used Tobacco 08/20/24 12:52 e-Cigarette/Vaping Use Never Used 08/20/24 12:52 Thrive Assessment: Date of Thrive Assessment Date Thrive assessed 04/28/24 08/20/24 12:52 Resp Effort & Inspection: normal respiratory effort Auscultation: clear to auscultation bilaterally Cardio Jugular venous distension: no JVD Rate: regular rate Rhythm: regular rhythm Heart sounds: S1 normal heart sound present and S2 normal heart sound present Extrem General: Yes full ROM Results AMB Hemoglobin A1c AMB Hemoglobin A1c 6.9 % Last Edit by MERISSA Yan on 08/20/24 13:0 0 Results Reviewed Results Reviewed: Laboratory Last Values Hgb A1c (Clinic) 6.9 % (4.0-6.0) H 08/20/24 12:50 Coding Level of Care Code Est Pt Level 4 (04253) Complex EM visit Add On G2211 Diagnoses Type 2 diabetes mellitus without complication, without long-term current use of insulin E11.9 Mixed hyperlipidemia E78.2 Osteopenia M85.80 Rheumatoid arthritis involving multiple sites, unspecified whether rheumatoid factor present M06.9 Rheumatoid arthritis location: multiple sites Rheumatoid factor presence: unspecified presence Hypovitaminosis D E55.9 Pernicious anemia D51.0 Time Spent (min) 21 Assessment & Plan Assessment & Plan (1) Type 2 diabetes mellitus without complication, without long-term current use of insulin: Code(s): E11.9 - Type 2 diabetes mellitus without complications Category: Medical (2) Mixed hyperlipidemia: Code(s): E78.2 - Mixed hyperlipidemia Category: Medical (3) Osteopenia: Code(s): M85.80 - Other specified disorders of bone density and structure, unspecified site Category: Medical (4) Rheumatoid arthritis: Code(s): M06.9 - Rheumatoid arthritis, unspecified Category: Medical Qualifiers: Rheumatoid arthritis location: multiple sites Rheumatoid factor presence: unspecified presence Qualified Code(s): M06.9 - Rheumatoid arthritis, unspecified (5) Hypovitaminosis D: Code(s): E55.9 - Vitamin D deficiency, unspecified Category: Medical (6) Pernicious anemia: Code(s): D51.0 - Vitamin B12 deficiency anemia due to intrinsic factor deficiency Category: Medical Plan The patient's Type 2 Diabetes Mellitus will continue to be managed with Metformin 500 mg twice daily, and her glycemic control will be monitored with repeat HbA1c testing in four months. For hyperlipidemia, atorvastatin 10 mg will be continued, and lipid levels will be reassessed during the next visit. Rheumatoid Arthritis management with Humira will be maintained, with rheumatology follow-up as needed. Osteopenia will continue to be monitored with calcium and vitamin D supplementation, and the next DEXA scan is scheduled for 2025. Pernicious anemia will be managed with ongoing vitamin supplementation. Eczema management with clobetasol will be continued as needed. Patient was informed and verbally consented to the use of an ambient scribe for clinic note documentation during this visit. During the visit, I discussed with the patient the importance of maintaining her current medication regimen for managing her chronic conditions, including Type 2 Diabetes Mellitus, Rheumatoid Arthritis, Hyperlipidemia, Osteopenia, Pernicious Anemia, and Eczema. We agreed to repeat her laboratory tests in four months to monitor her diabetes and lipid levels. I also emphasized the need for regular follow-up with rheumatology for her rheumatoid arthritis and the importance of continuing her calcium and vitamin D supplementation for osteopenia. Orders: Orders AMB Hemoglobin A1c Today E11.9 - Type 2 diabetes mellitus without complications Vitamin B12 and Folate 4 Months E53.8 - Deficiency of other specified B group vitamins Patient Instructions: - Continue taking all current medications as prescribed. - Schedule and complete laboratory tests in four months. - Maintain follow-up appointments with rheumatology for rheumatoid arthritis management. - Continue calcium and vitamin D supplementation for osteopenia.
[2024-08-20 12:54] VITALS: BP 120/82; BMI 23.9
== END 2024-08-20 13:10 | disposition home or self-care (01) ==
LOC: HO.HMCH 12:44
PROVIDERS: PCP Internal Medicine; Visit Provider Internal Medicine
DX: E11.9 Type 2 diabetes mellitus without complications (principal); E78.2 Mixed hyperlipidemia; M85.80 Other specified disorders of bone density and structure, unspecified site; M06.9 Rheumatoid arthritis, unspecified; E55.9 Vitamin D deficiency, unspecified; D51.0 Vitamin B12 deficiency anemia due to intrinsic factor deficiency

== ENCOUNTER → 2024-08-20 12:44 | Outpatient (BNVA) | payer OTHER, SELFPAY | PROVIDERS: PCP Internal Medicine; Visit Provider Internal Medicine | DX: E11.9 Type 2 diabetes mellitus without complications (principal); M06.9 Rheumatoid arthritis, unspecified; M85.80 Other specified disorders of bone density and structure, unspecified site; L30.9 Dermatitis, unspecified; E78.2 Mixed hyperlipidemia; E55.9 Vitamin D deficiency, unspecified; D51.0 Vitamin B12 deficiency anemia due to intrinsic factor deficiency; Z79.84 Long term (current) use of oral hypoglycemic drugs | CPT/HCPCS: 83036 ==

== ENCOUNTER 2024-12-22 08:03 | Outpatient (AMB) | payer OTHER, SELFPAY ==
--- OUTSIDE RECORDS SUMMARY | 2024-12-22 08:09 | XMS_ITS | Clinical Summary ---
Author Organization [facility] Address [address] [place] [id number] Phone Care Team Providers Care Manager Dairy Name Role Phone Leidy Villalobos MD Primary Care Provid er Allergies Active Allergy Reactions Criticality Noted Date Comments Aspirin GI Upset 07/01/2023 Medications ALYCE SIMPSON, PEN 40 mg/0.4 mL pen kit citrate free 06/15/2023 Active atorvastatin (LIPITOR) 10 MG tablet Take 10 mg by mouth nightly at bedtime. 06/23/2023 Active fenofibrate (LOFIBRA) 54 MG tablet Take 1 tablet by mouth every morning. 06/23/2023 Active nabumetone (RELAFEN) 500 MG tablet TAKE ONE TABLET BY MOUTH TWICE A DAY NEEDED FOR JOINT PAIN 06/23/2023 Active Active Problems No known active problems Social History Tobacco Use Types Packs/Day Years Used Date Smoking Tobacco: Never Smokeless Tobacco: Never Tobacco Cessation:Counseling Given: Not Answered Education Answer Date Recorded Are you interested in more education? Not on olesya e 07/01/2023 Are you concerned about learning? Not on file 07/01/2023 No 07/01/2023 No 07/01/2023 Digital Access Answer Date Recorded No 07/01/2023 No 07/01/2023 Reliable internet access at home? Not on file 07/01/2023 Device with a working camera? Not on file Comments Unknown Sex and Gender Information Value Date Recorded Sex Assigned at Not on file Legal Sex Female 6:07 PM EDT Gender Identity Not on file Sexual Orientation Not on file Last Filed Vital Signs Vital Sign Reading Time Taken Comments Blood Pressure 104/70 07/01/2023 6:27 PM EDT Pulse 82 07/01/2023 6:27 PM EDT Temperature 36.2 C (97.1 F) 07/01/2023 6:27 PM EDT Respiratory Rate 16 07/01/2023 6:27 PM EDT Oxygen Saturation 95% 07/01/2023 6:27 PM EDT Inhaled Oxygen Concentration - - Weight - - Height - - Body Mass Index - - Plan of Treatment Health Maintenance Due Date Last Done Comments Adult Td,Tdap Booster 1964 LIPID PANEL 1964 DEPRESSION SCREENING 1976 HEPATITIS C SCREENING 1982 HIV ONE-TIME SCREENING (18-6 5 YEARS) 1982 PNEUMOCOCCAL VACCINES (50+ years) (1 of 2 - PCV) 12/07/1983 ZOSTER VACCINES (1 of 2) 12/07/1983 PAP SMEAR 1985 MAMMOGRAM 2004 COLOGUARD 2009 COLONOSCOPY 2009 COLORECTAL CANCER SCREENING 2009 FIT TEST 2009 FOBT 2009 SIGMOIDOSCOPY 2009 VIRTUAL COLONOSCOPY 2009 RSV VACCINE (1 - Risk 50-74 years 1-dose series) 2014 COVID-19 VACCINE (3 - Pfizer risk series) 09/13/2020 08/16/2020, 07/26/2020 INFLUENZA VACCINE (#1) 2024 SMOKING STATUS SCREENING (On ce After 26 Yrs) Completed 07/01/2023 HEPATITIS A VACCINES Aged Out No long er eligible based on patient's age to complete this topic HIB VACCINES Aged Out No longer eligi ble based on patient's age to complete this topic MENINGOCOCCAL VACCINES (ACWY) Aged Out No longer eligible based on patient's age to complete this topic MENINGOCOCCAL VACCINES (B) Aged Out N o longer eligible based on patient's age to complete this topic Medical Devices Not on file Insurance [employer] [place] [id number] [employer] [place] [address] [employer] [place] [phone] [employer] [place] [address] [employer] [address] [employer] [place] [phone] Care Teams Manager Dairy Relationship Specialty Start Date End Date Leidy Villalobos MD [address] [place] [address] PCP - General Internal Medicine 07/01/23 Additional Source Comments The information contained in this document represents components of the legal health record. It is not the complete legal health record.[facility]
[2024-12-22 08:11] VITALS: BP 112/74; PULSE 76; TEMP 36.2; O2SAT 97; BMI 24.0
--- NOTE | 2024-12-22 08:11 | MHC.PC.OV ---
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 Accompanied by: Self / Same As Patient Allergies ibuprofen Allergy (Mild, Verified 12/22/24 08:20) Abdominal Pain aspirin (ASPIRIN) Allergy (Unknown, Verified 12/22/24 08:20) STOMACH UPSET, gi upset meloxicam Adverse Reaction (Intermediate, Verified 12/22/24 08:20) upset stomach Aspir Allergy (Unknown, Uncoded 12/22/24 08:20) stomach upset Medication List - Last Reconciled 12/22/24 by Leidy Crook MD adalimumab (Humira Pen) 40 mg subcut QWEEK atorvastatin 10 mg PO BEDTIME 90 days blood sugar diagnostic (FreeStyle Lite Strips) Use 1 test strip once a day blood-glucose meter (FreeStyle Lite Meter kit) As directed calcium carbonate-vitamin D3 500 mg-10 mcg (400 unit) (Oyster Shell Calcium-Vitamin D3) 1 tab PO DAILY 90 days cholecalciferol (vitamin D3) 50 mcg PO DAILY 90 days clobetasol 0.05% 1 appl topical BID fenofibrate 54 mg PO DAILY 90 days lancets (FreeStyle Lancets) Use 1 lancet once a day mecobalamin (vitamin B12) 1,000 mcg PO DAILY metformin 500 mg PO BID 90 days nabumetone 500 mg PO BID silver sulfadiazine 1% 1 appl topical BID Tobacco use date assessed: 12/22/24 Dental Screening Dental Screen Date: 12/22/24 Did you have a dental visit in the last 12 months?: Yes Did you have a dental problem in the last 6 months where you did not have access to dental care?: No Was dental information given to patient?: Patient has dentist HPI HPI Comments History of Present Illness Details The patient is a 59-year-old female presenting for follow-up on chronic conditions including diabetes, hyperlipidemia, and rheumatoid arthritis. Her diabetes management includes metformin 500 mg twice daily, with a recent A1c of 6.9%, meeting the target of less than 7%. Blood pressure readings are consistently below 130/80 mmHg, indicating good control. The patient is on Humira for rheumatoid arthritis and atorvastatin for hyperlipidemia. Fenofibrate is being discontinued, with follow-up blood work planned in four months. Goiter is present, with symptoms of a strong odor and swallowing difficulties, leading to orders for a thyroid ultrasound and a barium swallow test. [facility] Surgical History History of section Family History Mother Diabetes mellitus Father No problems noted. Social History Housing: House Alcohol intake: never Patient Tobacco Use Status: Never used Tobacco e-Cigarette/Vaping Use: Never Used Second Hand Smoke Exposure: No service: No Current occupational status: unemployed Cognitive needs: No Hearing needs: No Vision needs: No Questionnaire PHQ-9 Over the last 2 weeks, how often have you been bothered by any of the following problems? 1. Little interest or pleasure in doing things: not at all 2. Feeling down, depressed, or hopeless: not at all 3. Trouble falling or staying asleep, or sleeping too much: not at all 4. Feeling tired or having little energy: not at all 5. Poor appetite or overeating: not at all 6. Feeling bad about yourself - or that you are a failure or have let yourself or your family down: not at all 7. Trouble concentrating on things, such as reading the newspaper or watching television: not at all 8. Moving or speaking so slowly that other people could have noticed. Or the opposite - being so fidgety or restless that you have been moving around a lot more than usual: not at all 9. Thoughts that you would be better off or of hurting yourself in some way: not at all Total score: 0 Depression Screening Interpretation: Negative Depression Screening Done: Yes 62761 - PHQ-9 Billing: Yes Source: Developed by Drs. Aj Knox, Iliana Ruiz, Javid Walton and colleagues, with an educational humphrey from [employer]. Thrive Questionnaire Date Thrive assessed: 04/28/24 I am a: Patient What is your living situation today?: I choose not to answer this question Within the past 12 months, did the food you bought not last and you didn't have the money to get more?: I choose not to answer this question Within the past 12 months, did you worry whether your food would run out before you got money to buy more?: I choose not to answer this question Do you have trouble paying for medicines?: No Do you have trouble getting transportation to medical appointments?: No Do you have trouble paying your heating and electricity bill?: No Do you have trouble taking care of your child, family member or friend?: No Do you have trouble with day-to-day activities such as bathing, preparing meals, shopping, managing finances, etc.?: No Are you currently unemployed and looking for a job?: No Are you interested in more education?: No Please select the resources that you would like help with: None Currently or been in a relationship where the following occur: I choose not to answer THRIVE Score: 0 AUDIT C Alcohol Use Questionnaire (AUDIT-C) 1. How often do you have a drink containing alcohol?: Never 3. How often do you have six or more drinks on one occasion?: Never Total Score: 0 Score Reviewed/Action Taken: No RISHI-7 AMB Questionnaire RISHI-7 Date RISHI - 7 assessed: 04/28/24 Feeling nervous, anxious, or on edge: 0 = Not at all Not being able to stop or control worryin = Not at all Worrying too much about different things: 0 = Not at all Trouble relaxin = Not at all Being so restless that it is hard to sit still: 0 = Not at all Becoming easily annoyed or irritable: 0 = Not at all Feeling afraid as if something awful might happen: 0 = Not at all Total RISHI-7 score (0-4 normal; 5-9 mild; 10-14 moderate; 15-21 severe): 0 Source: Developed by Drs. Aj Knox, Iliana Ruiz, Javid Walton and colleagues, with an educational humphrey from [employer]. RISHI-7 Assessment Billing RISHI-7 Assessment Tool: RISHI-7 Assessment 11725 Review of Systems Const All systems reviewed & are unremarkable except as noted in HPI and below Card Denies chest pain at rest, Denies chest pain with activity, Denies edema, Denies irregular heart rhythm, Denies claudication, Denies dyspnea, Denies dyspnea on exertion, Denies orthopnea, Denies paroxysmal nocturnal dyspnea and Denies slow heart rate Resp Denies cough, Denies dyspnea and Denies dyspnea on exertion GI Denies abdominal pain, Denies change in bowel habits, Denies excessive flatus, Denies nausea and Denies vomiting Physical exam (Primary Care) Vital Signs: Last Vital Signs Temp 97.1 F 12/22/24 08:11 Pulse 76 12/22/24 08:11 BP 112/74 12/22/24 08:11 Pulse Ox 97 12/22/24 08:11 Oxygen Delivery Method Room Air 12/22/24 08:11 BMI result Body Mass Index 24.0 Tobacco/Smoking Status: Tobacco use Status Tobacco use date assessed 12/22/24 12/22/24 08:16 Patient Tobacco Use Status Never used Tobacco 12/22/24 08:16 e-Cigarette/Vaping Use Never Used 12/22/24 08:16 PHQ-9: PHQ-9 Score PHQ-9: Total score 0 12/22/24 08:16 Depression Screening Interpretation: Negative Thrive Assessment: Date of Thrive Assessment Date Thrive assessed 04/28/24 12/22/24 08:16 Currently or been in a relationship where the following occur: I choose not to answer Neck Thyroid: diffusely enlarged Resp Effort & Inspection: normal respiratory effort Auscultation: clear to auscultation bilaterally Cardio Jugular venous distension: no JVD Rate: regular rate Rhythm: regular rhythm Heart sounds: S1 normal heart sound present and S2 normal heart sound present Extrem General: Yes full ROM Results AMB Hemoglobin A1c AMB Hemoglobin A1c 6.9 % Last Edit by Janice Cleveland CMA on 12/22/24 08:20 Coding Level of Care Code Est Pt Level 4 (58326) Complex EM visit Add On G2211 Diagnoses Type 2 diabetes mellitus without complication, without long-term current use of insulin E11.9 Mixed hyperlipidemia E78.2 Goiter E04.9 Dysphagia R13.10 Rheumatoid arthritis involving multiple sites, unspecified whether rheumatoid factor present M06.9 Rheumatoid arthritis location: multiple sites Rheumatoid factor presence: unspecified presence Additional Codes PHQ-9 - 13880 - PHQ-9 Billing: Yes ([id number]) RISHI-7 Assessment Billing - RISHI-7 Assessment Tool: RISHI-7 Assessment 67688 ([id number]) Time Spent (min) 22 Assessment & Plan Assessment & Plan (1) Type 2 diabetes mellitus without complication, without long-term current use of insulin: Code(s): E11.9 - Type 2 diabetes mellitus without complications Category: Medical (2) Mixed hyperlipidemia: Code(s): E78.2 - Mixed hyperlipidemia Category: Medical (3) Goiter: Code(s): E04.9 - Nontoxic goiter, unspecified Category: Medical (4) Dysphagia: Code(s): R13.10 - Dysphagia, unspecified Category: Medical (5) Rheumatoid arthritis: Code(s): M06.9 - Rheumatoid arthritis, unspecified Category: Medical Qualifiers: Rheumatoid arthritis location: multiple sites Rheumatoid factor presence: unspecified presence Qualified Code(s): M06.9 - Rheumatoid arthritis, unspecified Plan Plan 1. Type 2 diabetes mellitus without complications E11.9 HCC 19 The patient's diabetes is managed with metformin 500 mg twice daily, achieving an A1c of 6.9%. Continued monitoring of blood glucose levels is recommended, with follow-up blood work planned. 2. Rheumatoid arthritis, unspecified M06.9 HCC 40 The patient is on Humira for rheumatoid arthritis, with no changes in therapy discussed during this visit. 3. Hyperlipidemia, unspecified E78.5 Atorvastatin is continued for hyperlipidemia management, while fenofibrate is discontinued. Follow-up blood work is scheduled in four months to reassess lipid levels. 4. Nontoxic goiter, unspecified E04.9 The patient reports a thyroid nodule with symptoms of strong odor and swallowing difficulties. A thyroid ultrasound and barium swallow test are ordered to evaluate the nodule and assess for any obstruction. 5. Dysphagia, unspecified R13.10 Barium swallow ordered. Orders: Orders AMB Hemoglobin A1c Today Z13.9 - Encounter for screening, unspecified US thyroid Today E04.9 - Nontoxic goiter, unspecified [place] barium swallow Today R13.10 - Dysphagia, unspecified Vitamin D 25-OH Total 4 Months E55.9 - Vitamin D deficiency, unspecified Lipid Panel 4 Months E78.5 - Hyperlipidemia, unspecified Comprehensive [place]. Panel Fast 4 Months E11.9 - Type 2 diabetes mellitus without complications Vitamin B12 and Folate 4 Months E53.8 - Deficiency of other specified B group vitamins Microalbumin, Random (w Creat) 4 Months R80.9 - Proteinuria, unspecified Thyroid Stimulating Hormone 4 Months E04.9 - Nontoxic goiter, unspecified Free T4 (Free Thyroxine) 4 Months E04.9 - Nontoxic goiter, unspecified Medications: Discontinued fenofibrate Discontinued Reason: Patient Completed Course 54 mg PO DAILY 90 days 90 tabs 1RF E78.2 - Mixed hyperlipidemia
== END 2024-12-22 08:32 | disposition home or self-care (01) ==
LOC: HO.HMCH 08:03
PROVIDERS: PCP Internal Medicine; Visit Provider Internal Medicine
DX: E11.9 Type 2 diabetes mellitus without complications (principal); M06.9 Rheumatoid arthritis, unspecified; E78.2 Mixed hyperlipidemia; E04.9 Nontoxic goiter, unspecified; R13.10 Dysphagia, unspecified

== ENCOUNTER → 2024-12-22 08:03 | Outpatient (BNVA) | payer OTHER, SELFPAY | PROVIDERS: PCP Internal Medicine; Visit Provider Internal Medicine | DX: E11.9 Type 2 diabetes mellitus without complications (principal); E78.2 Mixed hyperlipidemia; E04.9 Nontoxic goiter, unspecified; R13.10 Dysphagia, unspecified; M06.9 Rheumatoid arthritis, unspecified; Z79.620 Long term (current) use of immunosuppressive biologic; Z79.84 Long term (current) use of oral hypoglycemic drugs; Z79.899 Other long term (current) drug therapy; Z13.31 Encounter for screening for depression | CPT/HCPCS: 83036; 96127 ==

== ENCOUNTER 2025-03-01 12:48 | Outpatient (REF) | payer OTHER, SELFPAY ==
--- NOTE | ~2025-03-01 | US_ITS ---
EXAMINATION: US THYROID HISTORY: E04.9 - Nontoxic goiter, unspecified TECHNIQUE: Real-time grayscale ultrasound imaging was performed and images were reviewed. COMPARISON: There are no prior studies available for comparison. FINDINGS: SIZE: The right thyroid lobe measures 4.8 x 1.4 by 1.3 cm. The left thyroid lobe measures 5.2 x 1.2 x 1.3 cm. The isthmus measures 1 mm. FLOW: Flow to the gland is normal. ECHOGENICITY: The echotexture of the gland is homogeneous. NODULES: No nodules are identified. US/US thyroid IMPRESSION: Unremarkable thyroid ultrasound. ACR TI-RADS Guidelines TR1 (0 points): Benign. No follow-up or biopsy required TR2 (2 points): Not Suspicious. No biopsy or follow up indicated TR3 (3 points): Mildly Suspicious. FNA if >= 2.5 cm, Follow if >= 1.5 cm TR4 (4-6 points): Moderately Suspicious. FNA if >= 1.5 cm, Follow if >= 1.0 cm TR5 (>=7 points): Highly Suspicious. FNA if >= 1.0 cm, Follow if >= 0.5 cm Electronically signed by: Aj Moura MD 03/01/2025 01:[address] [facility]
--- NOTE | ~2025-03-01 | MM_ITS ---
EXAMINATION: MM SCREENING DIGITAL BREAST TOMOSYNTHESIS, BILATERAL CLINICAL INFORMATION: Screening. Asymptomatic. COMPARISON: Mammography: Comparison is made with available priors TECHNIQUE: Digital breast mammography with tomosynthesis is performed in both the craniocaudal and mediolateral oblique views along with computer-aided detection (CAD). FINDINGS: There are scattered areas of fibroglandular density. There are no significant masses, abnormal calcifications, or other abnormalities. MM/MM tomosynthesis screening BI IMPRESSION: No mammographic evidence of malignancy. ASSESSMENT: BI-RADS Category 1: Negative RECOMMENDATION: Routine annual mammography screening. 1 year F/U This examination should not preclude the clinical evaluation of a suspicious palpable abnormality. This patient's information was entered into a reminder system with a target due date for their next mammogram. Electronically signed by: Elizabeth Dill DO 03/03/2025 12:48 PM [facility]
--- OUTSIDE RECORDS SUMMARY | 2025-03-01 14:40 | XMS_ITS | Clinical Summary ---
Author Organization [facility] Address [address] [place] [id number] Phone Care Team Providers Care Regulator Assembler Name Role Phone Leidy Villalobos MD Primary [...] topic Medical Devices Not on file Insurance [employer] [place] [phone] [employer] [place] [address] [employer] [place] [address] [employer] [place] [phone] [employer] [place] [address] [employer] [place] [phone] Care Teams Regulator Assembler Relationship Specialty Start Date End Date Leidy Villalobos MD [address] [place] [address] PCP - General Internal Medicine 07/01/23 Additional Source Comments The information contained in this document represents components of the legal health record. It is not the complete legal health record.[facility]
== END 2025-03-01 12:49 | disposition home or self-care (01) ==
LOC: HO.US 12:48
PROVIDERS: PCP Internal Medicine; Visit Provider Internal Medicine
DX: E04.9 Nontoxic goiter, unspecified (principal); Z12.31 Encounter for screening mammogram for malignant neoplasm of breast
CPT/HCPCS: 76536; 77063; 77067

== ENCOUNTER → 2025-03-01 12:51 | Outpatient (BNV) | payer OTHER, SELFPAY | PROVIDERS: PCP Internal Medicine; Visit Provider Radiology Diagnostic Radiology | DX: Z12.31 Encounter for screening mammogram for malignant neoplasm of breast (principal) | CPT/HCPCS: 77063; 77067 ==